=== PATIENT | male | born 1960 | race Caucasian/White ===

== ENCOUNTER 2022-02-21 17:26 | Emergency (ER) | payer OTHER ==
[2022-02-21 18:39] VITALS: BP 127/80; PULSE 71; RESP 20; TEMP 98.6
[2022-02-21] MEDS ORDERED: KETOROLAC 15 MG/ML 1 ML VIAL IM STA (20:15)
--- NOTE | 2022-02-21 20:24 | ED ---
Extremity Problem HPI - General Chief complaint: Extremity Problem,Nontraumatic Stated complaint: Shoulder pain Time Seen by Provider: 02/21/22 20:10 Source: patient, family, RN notes reviewed, old records reviewed Mode of arrival: ambulatory Limitations: no limitations - History of Present Illness Initial comments: Patient presents to the emergency room with complaints of chronic left shoulder pain. He is out of his gabapentin and does not see his Dr. until Monday. He is requesting a refill on his medications. MD Complaint: extremity pain, joint pain (left shoulder) -: month(s) (3) Location: left History of Same: Yes Radiation: none Severity scale (1-10): 10 Quality: aching, constant Consistency: constant Improves with: immobilization Worsens with: other (movement) Associated Symptoms: denies other symptoms - Related Data Home Medications Medication Instructions Recorded Confirmed Gabapentin [Neurontin] 300 mg PO BID 11/10/21 11/10/21 Previous Rx's Medication Instructions Recorded clonazePAM [KlonoPIN] 0.5 mg PO BID 3 Days #6 tab 11/10/21 Gabapentin [Neurontin] 300 mg PO BID 5 Days #10 cap 02/21/22 Allergies Allergy/AdvReac Type Severity Reaction Status Date / Time No Known Allergies Allergy Verified 02/21/22 18:38 Review of Systems ROS Statement: Those systems with pertinent positive or pertinent negative responses have been documented in the HPI. ROS Other: All systems not noted in ROS Statement are negative. Past Medical History Past Medical History: No Reported History History of Any Multi-Drug Resistant Organisms: None Reported Past Surgical History: No Surgical Hx Reported Past Psychological History: No Psychological Hx Reported Smoking Status: Current every day smoker Past Alcohol Use History: None Reported Past Drug Use History: None Reported General Exam Limitations: no limitations General appearance: alert, in no apparent distress Head exam: Present: atraumatic, normocephalic Eye exam: Absent: scleral icterus, conjunctival injection Respiratory exam: Present: normal lung sounds bilaterally. Absent: respiratory distress, accessory muscle use Cardiovascular Exam: Present: regular rate Left Shoulder Exam: Present: normal inspection, full ROM, tenderness. Absent: swelling, abrasion, laceration, ecchymosis, deformity, crepitus, dislocation, erythema, tenderness over AC joint Upper Arm exam: Present: normal inspection, full ROM. Absent: tenderness, swelling, dislocation, erythema Elbow exam: Present: normal inspection, full ROM. Absent: tenderness Neurological exam: Present: alert, oriented X3 Psychiatric exam: Present: normal affect, normal mood Skin exam: Present: warm, normal color. Absent: cyanosis, diaphoretic, petechiae, pallor Course Vital Signs 02/21/22 18:35 Temperature 98.6 F Pulse Rate 71 Respiratory 20 Rate Blood Pressure 127/80 O2 Sat by Pulse 98 Oximetry Medical Decision Making - Medical Decision Making Patient presents to the emergency room with chronic left shoulder pain for 3 months. He denies any injury but states that he does have repetitive movements at work. He is being treated by his primary care doctor and has an appointment on Monday this week. He states he is out of his gabapentin and just needs a refill. Patient has full range of motion of the shoulder. Pulses are present. He is neurovascularly intact. Case discussed with Dr. Hess who suggested to refill his gabapentin to get him through the week until he sees his primary care doctor. Prescription was called in to his pharmacy. Instructed to keep his appointment with his primary care doctor. Patient is agreeable to this plan of care. Disposition Clinical Impression: Chronic left shoulder pain Disposition: HOME SELF-CARE Condition: Good Instructions (If sedation given, give patient instructions): Shoulder Pain (ED) Additional Instructions: Follow-up with the primary care doctor as scheduled this Monday. You can discuss continuation of care and pain management at that time. I have included a referral to orthopedics as needed. Prescriptions: Gabapentin [Neurontin] 300 mg PO BID 5 Days #10 cap Is patient prescribed a controlled substance at d/c from ED?: No Referrals: Eli Pandey MD [Primary Care Provider] - 1-2 days Autumn Mccord NPC [Nurse Practitioner] - 1-2 days Time of Disposition: 20:24
== END 2022-02-21 20:39 | disposition home or self-care (01) ==
LOC: EC 17:26
DX: G89.29 Other chronic pain (principal); M25.512 Pain in left shoulder; F17.200 Nicotine dependence, unspecified, uncomplicated
CPT/HCPCS: 99283; 96372; J1885

== ENCOUNTER 2023-02-28 10:48 | Emergency (ER) | payer OTHER ==
[2023-02-28 10:50] VITALS: BP 157/88; PULSE 68; RESP 16; TEMP 98.2
--- NOTE | 2023-02-28 11:11 | ED ---
General Adult HPI - General Chief complaint: Extremity Injury, Upper Stated complaint: shoulder pain Time Seen by Provider: 02/28/23 10:53 Source: patient, RN notes reviewed Mode of arrival: ambulatory Limitations: no limitations - History of Present Illness Initial comments: 62-year-old male presents emergency Department with chief complaint of left sh oulder pain. He has a history of arthritis of the left shoulder and has ongoing pain for which she takes gabapentin 600 mg twice a day. He reports the pain is worse with movement. He states that he gets his medications filled monthly and had it filled on 01/16/23. He states that he ran out on February 15 and has not been able to get his primary care provider. He states that he is looking for another medical provider in the area. Denies chest pain, shortness of breath. Denies any new injury. - Related Data Home Medications Medication Instructions Recorded Confirmed Gabapentin [Neurontin] 300 mg PO BID 11/10/21 11/10/21 Previous Rx's Medication Instructions Recorded clonazePAM [KlonoPIN] 0.5 mg PO BID 3 Days #6 tab 11/10/21 Gabapentin [Neurontin] 300 mg PO BID 5 Days #10 cap 02/21/22 Gabapentin 600 mg PO BID 3 Days #6 tab 02/28/23 Allergies Allergy/AdvReac Type Severity Reaction Status Date / Time No Known Allergies Allergy Verified 02/28/23 10:50 Review of Systems ROS Statement: Those systems with pertinent positive or pertinent negative responses have been documented in the HPI. ROS Other: All systems not noted in ROS Statement are negative. Past Medical History Past Medical History: No Reported History History of Any Multi-Drug Resistant Organisms: None Reported Past Surgical History: No Surgical Hx Reported Past Psychological History: No Psychological Hx Reported Smoking Status: Current every day smoker Past Alcohol Use History: None Reported Past Drug Use History: None Reported General Exam Limitations: no limitations General appearance: alert, in no apparent distress Head exam: Present: atraumatic, normocephalic, normal inspection Eye exam: Present: normal appearance, PERRL, EOMI. Absent: scleral icterus, conjunctival injection, periorbital swelling ENT exam: Present: normal exam, mucous membranes moist Neck exam: Present: normal inspection, full ROM. Absent: tenderness, meningismus, lymphadenopathy Respiratory exam: Present: normal lung sounds bilaterally. Absent: respiratory distress, wheezes, rales, rhonchi, stridor Cardiovascular Exam: Present: regular rate, normal rhythm, normal heart sounds. Absent: systolic murmur, diastolic murmur, rubs, gallop, clicks GI/Abdominal exam: Present: soft, normal bowel sounds. Absent: distended, tenderness, guarding, rebound, rigid Extremities exam: Present: normal inspection, full ROM, tenderness (left shoulder/proximal humerus ), normal capillary refill. Absent: pedal edema, joint swelling, calf tenderness Back exam: Present: normal inspection Neurological exam: Present: alert, oriented X3 Psychiatric exam: Present: normal affect, normal mood Skin exam: Present: warm, dry, intact, normal color. Absent: rash Course Vital Signs 02/28/23 10:49 Temperature 98.2 F Pulse Rate 68 Respiratory 16 Rate Blood Pressure 157/88 O2 Sat by Pulse 99 Oximetry Medical Decision Making - Medical Decision Making Was pt. sent in by a medical professional or institution (, PA, LOG DRIVER, urgent care, hospital, or halfway...) When possible be specific @ -No Did you speak to anyone other than the patient for history (EMS, parent, family, police, friend...)? What history was obtained from this source @ -No Did you review nursing and triage notes (agree or disagree)? Why? @ -I reviewed and agree with nursing and triage notes Were old charts reviewed (outside hosp., previous admission, EMS record, old EKG, old radiological studies, urgent care reports/EKG's, halfway records)? Report findings @ -No old charts were reviewed Differential Diagnosis (chest pain, altered mental status, abdominal pain women, abdominal pain men, vaginal bleeding, weakness, fever, dyspnea, syncope, headache, dizziness, GI bleed, back pain, seizure, CVA, palpatations, mental health, musculoskeletal)? @ -Differential Musculoskeletal Muscular strain, contusion, ligament sprain, fracture, arthritis, septic arthritis, bursitis, cellulitis, muscle spasm, nerve compression, DVT, arterial occlusion, herpes zoster, electrolyte abnormality, tumor.... This is not meant to be in all inclusive list EKG interpreted by me (3pts min.). @ -None X-rays interpreted by me (1pt min.). @ -None done CT interpreted by me (1pt min.). @ -None done U/S interpreted by me (1pt. min.). @ -None done What testing was considered but not performed or refused? (CT, X-rays, U/S, labs)? Why? @ -X-ray was considered but this is a chronic issue with no new injury or developmental pain What meds were considered but not given or refused? Why? @ -None Did you discuss the management of the patient with other professionals (professionals i.e. DrKristal, PA, LOG DRIVER, lab, RT, psych nurse, drug abuse social worker, golf ball inspector, teacher, chief investment officer, case consultant)? Give summary @ -Refill date and quantity verified by ED pharmacy Was smoking cessation discussed for >3mins.? @ -No Was critical care preformed (if so, how long)? @ -No Were there social determinants of health that impacted care today? How? (Homelessness, low income, unemployed, alcoholism, drug addiction, transportation, low edu. Level, literacy, decrease access to med. care, skilled nursing, rehab)? @ -No Was there de-escalation of care discussed even if they declined (Discuss DNR or withdrawal of care, Hospice)? DNR status @ -No What co-morbidities impacted this encounter? (DM, HTN, Smoking, COPD, CAD, Cancer, CVA, ARF, Chemo, Hep., AIDS, mental health diagnosis, sleep apnea, morbid obesity)? @ -None Was patient admitted / discharged? Hospital course, mention meds given and route, prescriptions, significant lab abnormalities, going to OR and other pertinent info. @ -Discharged. Patient presented to emergency department chief complaint of left shoulder pain which is chronic and has had no change in character no new injury. [place] [address]. It [place] [address] for 30 days. He reports that he takes 600 mg twice a day which was also verified. Prescription was sent to patient's pharmacy for 3 days worth of this medication. He was given a list of primary care providers in the area to aid in his search. Patient stable at time of discharge. Case discussed with my attending, Dr. Reyes. Undiagnosed new problem with uncertain prognosis? @ -No Drug Therapy requiring intensive monitoring for toxicity (Heparin, Nitro, Insulin, Cardizem)? @ -No Were any procedures done? @ -No Diagnosis/symptom? @ -Left shoulder pain Acute, or Chronic, or Acute on Chronic? @ -Chronic Uncomplicated (without systemic symptoms) or Complicated (systemic symptoms)? @ -Uncomplicated Side effects of treatment? @ -No Exacerbation, Progression, or Severe Exacerbation? @ -No Poses a threat to life or bodily function? How? (Chest pain, [place], [place], pneumonia, PE, COPD, DKA, ARF, appy, cholecystitis, CVA, Diverticulitis, Homicidal, Suicidal, threat to staff... and all critical care pts) @ -No Disposition Clinical Impression: Chronic left shoulder pain Disposition: HOME SELF-CARE Condition: Stable Instructions (If sedation given, give patient instructions): Osteoarthritis (ED) Additional Instructions: Please follow up with primary care provider for further medication management. Prescriptions: Gabapentin 600 mg PO BID 3 Days #6 tab Is patient prescribed a controlled substance at d/c from ED?: Yes If prescribed controlled substance>3 days was MAPS reviewed?: Prescribed <3 Days Referrals: Eli Pandey MD [Primary Care Provider] - 1-2 days Forms: Area PCPs Time of Disposition: 11:19
== END 2023-02-28 11:42 | disposition home or self-care (01) ==
LOC: EC 10:48
DX: G89.29 Other chronic pain (principal); M25.512 Pain in left shoulder; F17.200 Nicotine dependence, unspecified, uncomplicated
CPT/HCPCS: 99283